=== PATIENT | female | born 1975 | race Caucasian/White ===

== ENCOUNTER 2020-03-09 06:39 | Emergency (ER) | payer OTHER, BC ==
[~2020-03-09] VITALS: Ht 172.7 cm; Wt 69.2 kg
--- NOTE | 2020-03-09 07:00 | NUR ---
RECVD REPORT FROM ANISA FAGAN, ASSUMED PATIENT CARE. PROVIDER AT BEDSIDE
[2020-03-09] MEDS ORDERED: KETOROLAC 30 MG/1 ML ONE (07:29)
[2020-03-09] MEDS ORDERED: ONDANSETRON 2MG/ML, 2ML ONE (07:30)
[2020-03-09] MEDS ORDERED: SODIUM CHLORIDE FLUSH 10ML SYR IVF ONE (07:30)
[2020-03-09] MEDS ORDERED: MORPHINE SULFATE 4 MG/ML, 1ML ONE (07:30)
[2020-03-09] MEDS ORDERED: ONDANSETRON 2MG/ML, 2ML IVPush ONE (07:30)
[2020-03-09] MEDS ORDERED: KETOROLAC 30 MG/1 ML IVPush ONE (07:30)
[2020-03-09] MEDS ORDERED: MORPHINE SULFATE 4 MG/ML, 1ML IVPush PRN (07:30)
[2020-03-09] MEDS ORDERED: SODIUM CHLORIDE 0.9% 1,000ML IV ONE (07:30)
[2020-03-09 08:31] LABS: MICROSCOPIC NOT IND
[2020-03-09 08:46] LABS: BASOPHILS % (AUTO) 0 % (0-1); EOSINOPHILS % (AUTO) 0 % (1-7); LYMPHOCYTES % (AUTO) 8 % (22-44); MEAN CORPUSCULAR HEMOGLOBIN 32.3 pg (27.0-34.8); MEAN CORPUSCULAR HGB CONC 33.9 g/dL (32.4-35.8); MEAN PLATELET VOLUME 8.4 fL (7.4-10.4); MONOCYTES % (AUTO) 5 % (2-9); NEUTROPHILS % (AUTO) 87 % (42-75); PLATELET COUNT 239 x10^3/uL (130-400); RED CELL DISTRIBUTION WIDTH 12.5 % (9.6-15.2)
--- NOTE | 2020-03-09 08:46 | NUR ---
PATIENT IS RESTING COMFORTABLY IN BED. PAIN IS DOWN TO A 1. VERBALIZED NO ADDITIONAL NEEDS AT THIS TIME.
[2020-03-09 08:56] LABS: ALBUMIN 3.7 g/dL (3.4-5.0); CALCIUM 8.6 mg/dL (8.5-10.1); CHLORIDE 108 mmol/L (98-107)
[2020-03-09 09:01] LABS: ALANINE AMINOTRANSFERASE 15 U/L (12-78); ALKALINE PHOSPHATASE 55 U/L (45-117); BILIRUBIN,TOTAL 0.9 mg/dL (0.2-1.0); CREATININE 1.02 mg/dL (0.55-1.02); TOTAL PROTEIN 6.5 g/dL (6.4-8.2)
[2020-03-09 09:03] LABS: MD SCAN
[2020-03-09 09:19] LABS: ANION GAP 5 mmol/L (5-15)
--- NOTE | 2020-03-09 09:46 | NUR ---
PT BP 87/37,REPOSITIONED BP 98/57
[2020-03-09 10:29] VITALS: BP 100/67
--- NOTE | 2020-03-09 10:36 | NUR ---
Patient/Caregiver given discharge instructions and they have confirmed that they understand the instructions. Patient ambulatory with steady gait.
== END 2020-03-09 10:37 | disposition home or self-care (01) ==
LOC: ED 09:35
DX: S29.012A Strain of muscle and tendon of back wall of thorax, initial encounter (principal); R11.2 Nausea with vomiting, unspecified; R25.2 Cramp and spasm; Z90.710 Acquired absence of both cervix and uterus; X58.XXXA Exposure to other specified factors, initial encounter; Y93.89 Activity, other specified; Y92.89 Other specified places as the place of occurrence of the external cause; Y99.8 Other external cause status
CPT/HCPCS: 36415; 74176; 80053; 81003; 83690; 85025; 96361; 96374; 96375; 99285; J1885; J2270; J2405; J7030